=== PATIENT | male | born 1940 ===

== ENCOUNTER 2020-02-29 12:54 | Inpatient (IN) ==
[~2020-02-29 12:54] MED LIST: Total Joint Mixture (50 ml) INTRAART ONE
[2020-02-29] MEDS ORDERED: CeFAZolin Syr 2,000MG/20 ML 2,000 MG/20 ML SYRINGE IVPB ONE (13:33)
[2020-02-29] MEDS ORDERED: Ringers Solution, Lactated 1,000 ML IVC SCH ×2 (13:45→19:39)
[2020-02-29] MEDS ORDERED: Pregabalin 75 MG CAPSULE PO ONE (13:52)
[2020-02-29] MEDS ORDERED: Famotidine 20 MG/2 ML VIAL IVP ONE (13:52)
[2020-02-29] MEDS ORDERED: Acetaminophen IV 1,000 MG/100 ML BAG IVPB ONE (13:52)
[2020-02-29] MEDS ORDERED: Vancomycin 1,000 MG VIAL ONE (15:41)
[2020-02-29] MEDS ORDERED: Ethanol\\Acetic Acid\\Na Ace\\Ben 1,000 ML IRRIG.SOLN IR ONE (15:41)
[2020-02-29] MEDS ORDERED: *HR* Midazolam HCl 2 MG/2 ML VIAL ONE (16:22)
[2020-02-29] MEDS ORDERED: *HR* FentaNYL (PF) 100 MCG/2 ML VIAL ONE (16:22)
[2020-02-29] MEDS ORDERED: Ondansetron 4 MG/2 ML VIAL ONE (16:34)
[2020-02-29] MEDS ORDERED: *HR* Propofol 200 MG/20 ML VIAL IVP ONE (16:35)
[2020-02-29] MEDS ORDERED: Lidocaine -MPF 2% 2 ML VIAL ONE (16:59)
[2020-02-29 19:17] LABS: Hematocrit 39.3 % (37.5-50.1); Hemoglobin 13.1 g/dL (12.9-16.9)
[2020-02-29] MEDS ORDERED: Dextrose Gel 15 GM/37.5 ML TUBE PO PRN ×2 (19:39)
[2020-02-29] MEDS ORDERED: Ondansetron 4 MG/2 ML VIAL IVP PRN (19:39)
[2020-02-29] MEDS ORDERED: MOM Conc 10 ML UD.LIQ PO PRN (19:39)
[2020-02-29] MEDS ORDERED: Sennosides 8.6 MG TABLET PO PRN (19:39)
[2020-02-29] MEDS ORDERED: Naloxone 0.4 MG/ML INJ IVP PRN (19:39)
[2020-02-29] MEDS ORDERED: *HR* Dextrose 50 % in Water (Vial) 50 ML VIAL IVP PRN (19:39)
[2020-02-29] MEDS ORDERED: *HR* Promethazine 25 MG/ML VIAL IVP PRN (19:39)
[2020-02-29] MEDS ORDERED: D5% in Water 1,000 ML IVC PRN (19:39)
[2020-02-29] MEDS: Ascorbic Acid 500 MG TABLET PO SCH (20:14)
[2020-02-29] MEDS: Insulin LISPRO 300 UNITS/3 ML VIAL SQ SCH (20:17)
[2020-03-01] MEDS: CeFAZolin 2 GM/120 ML BAG IVPB SCH ×2 (00:22→10:06)
[2020-03-01] MEDS: *HR* OxyCODONE Immed Rel 5 MG TABLET PO PRN ×3 (00:22→19:46)
[2020-03-01] MEDS: HYDROcodone BIT/Homatropine 5 MG TABLET PO PRN ×3 (01:21→17:32)
[2020-03-01] MEDS ORDERED: *HR* Enoxaparin 30 MG/0.3 ML SYRINGE SQ SCH (07:30)
[2020-03-01] MEDS: Multivit/Ca/Min/Fe/FA 1 TAB TABLET PO SCH (08:32)
[2020-03-01] MEDS: Ascorbic Acid 500 MG TABLET PO SCH ×2 (08:32→17:25)
[2020-03-01] MEDS: Cholecalciferol (D-3) 1,000 UNIT (25MCG) TABLET PO SCH (08:32)
[2020-03-01] MEDS: Insulin LISPRO 300 UNITS/3 ML VIAL SQ SCH ×4 (11:01→22:13)
[2020-03-01] MEDS ORDERED: Ketorolac 30 MG/ML VIAL IVP PRN (11:55)
[2020-03-01 12:05] LABS: Basophils # 0.1 K/mcL (0.0-0.2); Basophils % 0.7 %; Eosinophils # 0.1 K/mcL (0.0-0.6); Eosinophils % 1.6 %; Hematocrit 38.5 % (37.5-50.1); Hemoglobin 12.5 g/dL (12.9-16.9); Immature Granulocytes % 0.4 % (0-4); Lymphocytes # 1.3 K/mcL (0.6-4.6); Lymphocytes % 17.8 %; Mean Corpuscular HGB Conc 32.5 g/dL (31.6-35.5); Mean Corpuscular Hemoglobin 34.1 pg (28.0-33.3); Mean Corpuscular Volume 104.9 fL (83.0-100.0); Mean Platelet Volume 10.3 fL (9.4-12.4); Monocytes # 0.6 K/mcL (0.0-1.3); Monocytes % 7.5 %; Neutrophils # 5.3 K/mcL (1.6-8.9); Platelet Count 160 K/mcL (140-400); Red Blood Count 3.67 M/mcL (4.19-5.50); Red Cell Distribution Width 14.5 % (11.5-14.5); White Blood Count 7.4 K/mcL (4.3-11.1)
[2020-03-01 12:22] LABS: BUN/Creatinine Ratio 14 (6-26); Blood Urea Nitrogen 19 mg/dL (8-23); Calcium 8.8 mg/dL (8.6-10.3); Carbon Dioxide 25 mEq/L (23-29); Chloride 104 mEq/L (98-107); Glucose 106 mg/dL (70-105); Osmolality,Calculated 285 (280-300); Potassium 4.2 mEq/L (3.5-5.1); Sodium 136 mEq/L (136-145); eGFR For African Americans > 60 (> 60); eGFR For Non-African Americans 52 (> 60)
[2020-03-01] MEDS ORDERED: Aspirin Enteric Coated 81 MG Tablet PO SCH (15:51)
[2020-03-01] MEDS: Gabapentin 300 MG CAPSULE PO SCH ×2 (17:25→19:46)
[2020-03-01] MEDS: *HR* Enoxaparin 30 MG/0.3 ML SYRINGE SQ SCH ×2 (17:25→19:32)
[2020-03-02] MEDS: *HR* Enoxaparin 30 MG/0.3 ML SYRINGE SQ SCH ×2 (08:21→19:54)
[2020-03-02] MEDS: Multivit/Ca/Min/Fe/FA 1 TAB TABLET PO SCH (08:22)
[2020-03-02] MEDS: HYDROcodone BIT/Homatropine 5 MG TABLET PO PRN ×2 (08:22→14:53)
[2020-03-02] MEDS: Gabapentin 300 MG CAPSULE PO SCH ×3 (08:22→19:54)
[2020-03-02] MEDS: Cholecalciferol (D-3) 1,000 UNIT (25MCG) TABLET PO SCH (08:22)
[2020-03-02] MEDS: Ascorbic Acid 500 MG TABLET PO SCH ×2 (08:22→18:01)
[2020-03-02 09:20] LABS: Basophils % 0.5 %; Eosinophils # 0.3 K/mcL (0.0-0.6); Eosinophils % 4.4 %; Hematocrit 36.2 % (37.5-50.1); Hemoglobin 11.9 g/dL (12.9-16.9); Immature Granulocytes % 0.3 % (0-4); Lymphocytes # 1.5 K/mcL (0.6-4.6); Lymphocytes % 24.7 %; Mean Corpuscular HGB Conc 32.9 g/dL (31.6-35.5); Mean Corpuscular Hemoglobin 35.2 pg (28.0-33.3); Mean Corpuscular Volume 107.1 fL (83.0-100.0); Mean Platelet Volume 10.7 fL (9.4-12.4); Monocytes # 0.5 K/mcL (0.0-1.3); Monocytes % 7.7 %; Neutrophils # 3.9 K/mcL (1.6-8.9); Platelet Count 159 K/mcL (140-400); Red Blood Count 3.38 M/mcL (4.19-5.50); Red Cell Distribution Width 14.5 % (11.5-14.5); Segmented Neutrophils % 62.4 %; White Blood Count 6.2 K/mcL (4.3-11.1)
[2020-03-02] MEDS: Insulin LISPRO 300 UNITS/3 ML VIAL SQ SCH ×4 (09:21→21:34)
[2020-03-02 09:31] LABS: BUN/Creatinine Ratio 15 (6-26); Blood Urea Nitrogen 19 mg/dL (8-23); Calcium 8.9 mg/dL (8.6-10.3); Carbon Dioxide 26 mEq/L (23-29); Chloride 103 mEq/L (98-107); Glucose 105 mg/dL (70-105); Osmolality,Calculated 285 (280-300); Potassium 3.9 mEq/L (3.5-5.1); Sodium 136 mEq/L (136-145); eGFR For African Americans > 60 (> 60); eGFR For Non-African Americans 57 (> 60)
[2020-03-02] MEDS ORDERED: Gadolinium Contrast Agent (WT Based) IV PRN (15:46)
[2020-03-02] MEDS: *HR* OxyCODONE Immed Rel 5 MG TABLET PO PRN (19:53)
[2020-03-03] MEDS: *HR* OxyCODONE Immed Rel 5 MG TABLET PO PRN ×3 (03:00→16:19)
[2020-03-03 03:31] LABS: Chol/HDL Ratio 4.3 (0-4.9)
[2020-03-03 03:34] LABS: % Iron Saturation 19 % (20-55); Iron 40 mcg/dL (65-175); Transferrin 150 mg/dL (203-362)
[2020-03-03 03:51] LABS: Ferritin 261 ng/mL (20-250)
[2020-03-03 04:25] LABS: Estimated Average Glucose 105 mg/dl; Hemoglobin A1C 5.3 %
[2020-03-03 05:43] LABS: Hematocrit 31.5 % (37.5-50.1); Hemoglobin 10.5 g/dL (12.9-16.9)
[2020-03-03] MEDS ORDERED: *HR* OxyCODONE Immed Rel 5 MG TABLET PO PRN (08:00)
[2020-03-03] MEDS: Insulin LISPRO 300 UNITS/3 ML VIAL SQ SCH ×4 (08:27→22:10)
[2020-03-03] MEDS: Gabapentin 300 MG CAPSULE PO SCH ×3 (08:36→22:16)
[2020-03-03] MEDS: Multivit/Ca/Min/Fe/FA 1 TAB TABLET PO SCH (08:36)
[2020-03-03] MEDS: Ascorbic Acid 500 MG TABLET PO SCH ×2 (08:36→16:17)
[2020-03-03] MEDS: Cholecalciferol (D-3) 1,000 UNIT (25MCG) TABLET PO SCH (08:37)
[2020-03-03] MEDS: *HR* Enoxaparin 30 MG/0.3 ML SYRINGE SQ SCH ×2 (08:38→22:17)
[2020-03-03] MEDS ORDERED: tiZANidine 4 MG TABLET PO PRN (16:50)
[2020-03-03] MEDS: Sennosides 8.6 MG TABLET PO SCH (22:16)
[2020-03-04 02:08] LABS: Hematocrit 29.1 % (37.5-50.1)
[2020-03-04 02:46] LABS: Folate 18.3 ng/mL (3.0-16.0)
[2020-03-04] MEDS: *HR* Enoxaparin 30 MG/0.3 ML SYRINGE SQ SCH (09:39)
[2020-03-04] MEDS: Cholecalciferol (D-3) 1,000 UNIT (25MCG) TABLET PO SCH (09:40)
[2020-03-04] MEDS: Gabapentin 300 MG CAPSULE PO SCH (09:40)
[2020-03-04] MEDS: Ascorbic Acid 500 MG TABLET PO SCH ×2 (09:41→18:02)
[2020-03-04] MEDS: Multivit/Ca/Min/Fe/FA 1 TAB TABLET PO SCH (09:42)
[2020-03-04] MEDS: Insulin LISPRO 300 UNITS/3 ML VIAL SQ SCH ×4 (09:44→21:11)
[2020-03-04] MEDS: *HR* OxyCODONE Immed Rel 5 MG TABLET PO PRN ×2 (09:53→18:00)
[2020-03-04] MEDS: Gabapentin 400 MG CAPSULE PO SCH ×2 (18:01→20:48)
[2020-03-04] MEDS: Sennosides 8.6 MG TABLET PO SCH (20:48)
[2020-03-04] MEDS: Apixaban 5 MG TABLET PO SCH (20:48)
[2020-03-04] MEDS ORDERED: MOM Conc 10 ML UD.LIQ PO SCH (21:00)
[2020-03-05] MEDS: *HR* OxyCODONE Immed Rel 5 MG TABLET PO PRN ×3 (02:55→14:17)
[2020-03-05 06:36] LABS: Basophils % 0.5 %; Eosinophils # 0.3 K/mcL (0.0-0.6); Eosinophils % 5.6 %; Hematocrit 29.1 % (37.5-50.1); Hemoglobin 9.7 g/dL (12.9-16.9); Immature Granulocytes % 0.2 % (0-4); Lymphocytes # 1.5 K/mcL (0.6-4.6); Lymphocytes % 25.4 %; Mean Corpuscular HGB Conc 33.3 g/dL (31.6-35.5); Mean Corpuscular Hemoglobin 34.2 pg (28.0-33.3); Mean Corpuscular Volume 102.5 fL (83.0-100.0); Mean Platelet Volume 10.4 fL (9.4-12.4); Monocytes # 0.7 K/mcL (0.0-1.3); Monocytes % 11.5 %; Neutrophils # 3.4 K/mcL (1.6-8.9); Platelet Count 161 K/mcL (140-400); Red Blood Count 2.84 M/mcL (4.19-5.50); Red Cell Distribution Width 14.3 % (11.5-14.5); Segmented Neutrophils % 56.8 %; White Blood Count 5.9 K/mcL (4.3-11.1)
[2020-03-05 06:58] LABS: BUN/Creatinine Ratio 19 (6-26); Blood Urea Nitrogen 19 mg/dL (8-23); Calcium 8.3 mg/dL (8.6-10.3); Carbon Dioxide 27 mEq/L (23-29); Chloride 103 mEq/L (98-107); Glucose 96 mg/dL (70-105); Osmolality,Calculated 282 (280-300); Potassium 3.9 mEq/L (3.5-5.1); Sodium 135 mEq/L (136-145); eGFR For African Americans > 60 (> 60); eGFR For Non-African Americans > 60 (> 60)
[2020-03-05] MEDS ORDERED: MOM Conc 10 ML UD.LIQ PO PRN (08:40)
[2020-03-05] MEDS ORDERED: polyethylene glycoL 3350 17 GM POWD.PACK PO ONE (08:42)
[2020-03-05] MEDS: Gabapentin 400 MG CAPSULE PO SCH (08:50)
[2020-03-05] MEDS: Multivit/Ca/Min/Fe/FA 1 TAB TABLET PO SCH (08:51)
[2020-03-05] MEDS: Cholecalciferol (D-3) 1,000 UNIT (25MCG) TABLET PO SCH (08:52)
[2020-03-05] MEDS: Apixaban 5 MG TABLET PO SCH (08:52)
[2020-03-05] MEDS: Ascorbic Acid 500 MG TABLET PO SCH (08:53)
[2020-03-05] MEDS: Insulin LISPRO 300 UNITS/3 ML VIAL SQ SCH ×2 (08:55→11:46)
[2020-03-05 12:03] VITALS: BP 118/78
== END 2020-03-05 13:45 | DRG 470 ==
LOC: SAMDAY 12:54 → 3NENU 19:28 → INTOOBSV 03-01 21:42 → 3NENU 03-01 21:42
PROVIDERS: ADMIT Orthopaedic Surgery; ATTEND Orthopaedic Surgery